=== PATIENT | male | born 1970 | race Hispanic/Latino ===

== ENCOUNTER 2020-08-20 19:41 | Emergency (ER) | payer OTHER, SELFPAY | END 2020-08-20 20:20 | disposition home or self-care (01) | LOC: ERS 19:41 | DX: S16.1XXA Strain of muscle, fascia and tendon at neck level, initial encounter (principal); W50.1XXA Accidental kick by another person, initial encounter; Y99.0 Civilian activity done for income or pay | CPT/HCPCS: 99283 ==

== ENCOUNTER 2022-08-29 20:42 | Emergency (ER) | payer OTHER | END 2022-08-29 22:26 | disposition home or self-care (01) | LOC: ERS 20:42 | DX: S93.401A Sprain of unspecified ligament of right ankle, initial encounter (principal); W01.0XXA Fall on same level from slipping, tripping and stumbling without subsequent striking against object, initial encounter ==